=== PATIENT | male | born 1980 | race Caucasian/White ===

== ENCOUNTER 2018-03-21 01:01 | Emergency (ER) | payer MEDICAID ==
[~2018-03-21] VITALS: Ht 170.2 cm; Wt 60.2 kg
[~2018-03-21 01:01] MED LIST: PIP1KIT21 TP
[2018-03-21 01:18] VITALS: BP 130/82
== END 2018-03-21 02:01 | disposition left against medical advice (07) ==
LOC: ER 01:01
DX: R07.81 Pleurodynia (principal); Z53.21 Procedure and treatment not carried out due to patient leaving prior to being seen by health care provider
CPT/HCPCS: 71101

== ENCOUNTER 2021-06-12 16:48 | Emergency (ER) | payer MEDICAID ==
[~2021-06-12] VITALS: Ht 170.2 cm; Wt 61.4 kg
[2021-06-12] MEDS ORDERED: LIDOcaine 1% W/epiNEPHrine 1:200,000 10ml vial IJ ONE (17:00)
[2021-06-12 17:04] VITALS: BP 127/96
[2021-06-12] MEDS ORDERED: LIDOcaine 1% w/epiNEPHrine 1:200,000 30ml vial IJ ONE (17:05)
[2021-06-12 17:32] LABS: BASOPHILS # (AUTO) 0.1 X10'3 (0-0.2); BASOPHILS % (AUTO) 0.6 % (0-1); EOSINOPHILS # (AUTO) 0.2 X10'3 (0-0.9); EOSINOPHILS % (AUTO) 1.2 % (0-6); HEMATOCRIT 38.3 % (42.0-52.0); HEMOGLOBIN 13.2 g/dl (14.0-17.9); LYMPHOCYTES # (AUTO) 1.3 X10'3 (1.1-4.8); LYMPHOCYTES % (AUTO) 7.8 % (21-51); MEAN CORPUSCULAR HEMOGLOBIN 32.3 PG (27.0-31.0); MEAN CORPUSCULAR HGB CONC 34.6 g/dL (33.0-36.5); MEAN CORPUSCULAR VOLUME 93.2 FL (78-98); MEAN PLATELET VOLUME 7.9 FL (7.4-10.4); NEUTROPHILS # (AUTO) 13.7 X10'3 (1.8-7.7); NEUTROPHILS % (AUTO) 84.4 % (42-75); PLATELET COUNT 372 X10'3 (140-440); RED CELL DISTRIBUTION WIDTH 14.1 % (11.5-14.5); WHITE BLOOD COUNT 16.3 X10'3 (4.5-11.0)
[2021-06-12 17:36] LABS: ALBUMIN 3.6 G/DL (3.4-5.0); ANION GAP 15 (8-16); BLOOD UREA NITROGEN 22 MG/DL (7-18); BUN/CREATININE RATIO 17.7 (5.4-32.0); CALCIUM 8.9 MG/DL (8.5-10.1); CHLORIDE 103 MMOL/L (99-107); CREATININE 1.24 MG/DL (0.60-1.10); GLUCOSE 85 MG/DL (70-104); POTASSIUM 3.7 MMOL/L (3.5-5.1); SODIUM 139 MMOL/L (135-145); TOTAL CARBON DIOXIDE 20.6 MMOL/L (24-32); eGFR 65 ML/MIN
[2021-06-12] MEDS ORDERED: DOXYCYCLINE 100MG CAPSULE PO STA (17:54)
[2021-06-12] MEDS ORDERED: cephalexin 500mg capsule PO ONE (17:55)
[2021-06-12] MEDS ORDERED: CEPH-585 PO (17:57)
[2021-06-12] MEDS ORDERED: DOXY-11 PO (17:57)
--- NOTE | 2021-06-12 18:14 | NUR ---
CLIFFORD CADENA, TOOK MEDICATION WITH PT TO [facility].
== END 2021-06-12 18:15 ==
LOC: ER 16:48
DX: L02.415 Cutaneous abscess of right lower limb (principal); F17.210 Nicotine dependence, cigarettes, uncomplicated; Z02.89 Encounter for other administrative examinations; Z56.0 Unemployment, unspecified; Z59.00 Homelessness unspecified; Z88.5 Allergy status to narcotic agent; Z88.8 Allergy status to other drugs, medicaments and biological substances; Z79.899 Other long term (current) drug therapy
CPT/HCPCS: 10060; 36415; 80048; 83605; 85025; 87040; 99283

== ENCOUNTER 2025-06-19 07:24 | Outpatient (CLI) | payer MEDICAID ==
[2025-06-19 08:16] VITALS: PULSE 108; RESP 16; O2SAT 99
--- NOTE | 2025-06-19 15:24 | PROCEDURE NOTE - Respiratory ---
Procedure Note-Respiratory Providers to Copies To 1: PRISCILA BARNEY MD Procedure Name: This is a spirometry study dated June 19, 2025. Spirometry measurements: The forced vital capacity is normal at 4.61 L. The FEV1 is in the lower range of normal at 3.08 L. the FEV1 ratio is mildly reduced. Some of the flow rates show reduction. Bronchodilator was not administered as part of the study. Conclusion: This study shows mild abnormality. There is evidence for obstructive ventilatory defect in the mild category. 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 It is strongly recommended that the patient abstain from cigarette smoking. Bronchodilator therapy may help this patient. We have no previous studies for comparison. MARCO DORSEY MD Jun 19, 2025 15:24
== END 2025-06-19 23:59 | disposition home or self-care (01) ==
LOC: RT 07:24
PROVIDERS: ATTEND Student in an Organized Health Care Education/Training Program
DX: R06.02 Shortness of breath (principal)
CPT/HCPCS: 94010; 94760; A4615